=== PATIENT | male | born 1985 | race Caucasian/White ===

== ENCOUNTER 2022-11-29 13:25 | Emergency (ER) | payer MEDICAID ==
[~2022-11-29] VITALS: Ht 175.3 cm; Wt 72.6 kg
[2022-11-29 13:34] VITALS: BP 136/80; PULSE 76; RESP 18; TEMP 97.2; O2SAT 97
[2022-11-29] MEDS ORDERED: BACI-418 TP (14:01)
[2022-11-29 14:27] VITALS: BP 132/70; PULSE 79; RESP 19; TEMP 97.2; O2SAT 97
== END 2022-11-29 14:28 | disposition home or self-care (01) ==
LOC: MED 13:25
DX: S61.213A Laceration without foreign body of left middle finger without damage to nail, initial encounter (principal); Z79.899 Other long term (current) drug therapy; X58.XXXA Exposure to other specified factors, initial encounter; Y93.89 Activity, other specified; Y92.89 Other specified places as the place of occurrence of the external cause; Y99.8 Other external cause status
CPT/HCPCS: 99281